=== PATIENT | male | born 1975 | race Caucasian/White ===

== ENCOUNTER 2022-08-09 07:53 | Day surgery (SDC) | payer OTHER ==
[2022-08-08 08:17] VITALS: BMI 33.7
[2022-08-09 08:36] VITALS: RESP 18; TEMP 97.9
[2022-08-09] MEDS: LACTATED RINGERS 1,000 ML IV SCH ×2 (08:36→09:10)
[2022-08-09] MEDS ORDERED: PROPOFOL 10 MG/ML 20 ML VIAL IV ONE (09:12)
[2022-08-09] MEDS ORDERED: LIDOCAINE 2% INJ 20 MG/ML (2 ML VIAL) ONE (09:12)
--- NOTE | 2022-08-09 09:15 | P.GSHP ---
History of Present Illness H&P Date: 08/09/22 Chief Complaint: Screening colonoscopy This a 46-year-old male presents today for screening colonoscopy. She denies any significant GI complaints. Past Medical History Past Medical History: Hyperlipidemia History of Any Multi-Drug Resistant Organisms: None Reported Past Surgical History: Orthopedic Surgery Additional Past Surgical History / Comment(s): COLONOSCOPY. LT KNEE SX. CYSTOSCOPY Past Anesthesia/Blood Transfusion Reactions: No Reported Reaction Smoking Status: Current every day smoker - Past Family History Mother Family Medical History: No Reported History Additional Family Medical History / Comment(s): MATERNAL GRANDFATHER COLON CANCER Medications and Allergies Home Medications Medication Instructions Recorded Confirmed Type Atorvastatin [Lipitor] 20 mg PO HS 08/08/22 08/09/22 History Escitalopram [Lexapro] 10 mg PO HS 08/08/22 08/09/22 History Allergies Allergy/AdvReac Type Severity Reaction Status Date / Time No Known Allergies Allergy Verified 08/09/22 08:22 Surgical - Exam Vital Signs Temp Pulse Resp BP Pulse Ox 97.9 F 73 18 126/83 94 L 08/09/22 08:34 08/09/22 08:34 08/09/22 08:34 08/09/22 08:34 08/09/22 08:34 - General well developed, well nourished, no distress - Eyes PERRL - ENT normal pinna - Neck no masses - Respiratory normal expansion - Cardiovascular Rhythm: regular - Abdomen Abdomen: soft, non tender Assessment and Plan Assessment: We'll perform screening colonoscopy
--- NOTE | 2022-08-09 09:27 | P.OP ---
Date of Procedure: 08/09/22 Preoperative Diagnosis: Screening colonoscopy Postoperative Diagnosis: Normal colon Procedure(s) Performed: Screening colonoscopy Anesthesia: MAC Surgeon: Baljinder Pelayo Pathology: none sent Condition: stable Disposition: PACU Description of Procedure: PROCEDURE: The patient was placed on the endoscopy table in the lateral position. Digital rectal examination was performed which revealed no abnormalities. The prostate was symmetrical without nodules. Flexible colonoscope was then placed in the patient's anus and passed throughout the entire colon. The ileocecal valve was visualized. The cecum, ascending, transverse, descending and sigmoid colon were normal. The rectum was normal as well. There were no masses, polyps or diverticula noted in the entire colon. SUMMARY OF FINDINGS: Normal colonoscopy.
[2022-08-09 09:46] VITALS: BP 114/57; PULSE 58
== END 2022-08-09 10:01 | disposition home or self-care (01) ==
LOC: ORWHC2ENDO 07:53
PROVIDERS: ATTEND Surgery
DX: Z12.11 Encounter for screening for malignant neoplasm of colon (principal); E78.5 Hyperlipidemia, unspecified; F17.200 Nicotine dependence, unspecified, uncomplicated; Z98.890 Other specified postprocedural states; Z80.0 Family history of malignant neoplasm of digestive organs; Z79.899 Other long term (current) drug therapy
CPT/HCPCS: 45378; J2704; J2001

== ENCOUNTER → 2023-05-30 | Outpatient (CLI) | payer OTHER ==
--- NOTE | 2023-05-30 08:11 | CTL ---
EXAMINATION TYPE: CT Low Dose Lung DATE OF EXAM ORDERED: 05/30/2023 COMPARISON: None HISTORY: . Low Dose CT Lung Screening CT DLP: 157.[address] CTDI: 4.0 mGy IV CONTRAST USED: None. SCREENING VISIT: First visit COMPARISON: None. TECHNIQUE: Low dose computed tomography scan was performed through the chest at 1 millimeter thick se ctions and reconstructed images in the coronal plane at [address] DIAGNOSTIC QUALITY: Satisfactory FINDINGS: LUNG NODULES: Within the superior segment of the right lower lobe there is a tubular structure noted which is felt to reflect mucus filled bronchus. Noted adjacent to this are several nodular densities seen with a dominant nodule of 11 mm and some adjacent micronodularity. There is also a band of incre ased density extending to pleural-based nodule of 6.1 mm image 172 sequence 4. The findings are likel y postinflammatory in nature however neoplasm is not excluded. Recommendation is for three-month low- dose CT and/or PET/CT for further evaluation. No additional nodularity identified. LUNGS: COPD: Severity: None Fibrosis: Severity:None Lymph nodes: None Other findings: None RIGHT PLEURAL SPACE: Effusion: None Calcification: None Thickening: None Pneumothorax: None LEFT PLEURAL SPACE: Effusion: None Calcification: None Thickening: None Pneumothorax: None HEART: Heart Size: Mildly enlarged Coronary calcification: Mild Pericardial effusion: None OTHER FINDINGS: Upper abdomen: No significant abnormality Bony thorax: Degenerative changes Supraclavicular region: No significant abnormalityOther: No significant abnormalityI IMPRESSION: 1. Nodularity superior segment right lower lobe as discussed above which could be postinflammatory in nature however neoplasm is not excluded. See below recommendation. FOLLOW UP CT CHEST RECOMMENDATION: Recommendation is for three-month low-dose CT and/or PET/CT for further evaluation CT LUNG RAD: LUNG RAD CATEGORY 4A suspicious
== END | disposition home or self-care (01) ==
LOC: RADCTMAIN 06:04
PROVIDERS: ATTEND Internal Medicine Hematology & Oncology
DX: Z12.2 Encounter for screening for malignant neoplasm of respiratory organs (principal); F17.210 Nicotine dependence, cigarettes, uncomplicated
CPT/HCPCS: 71271

== ENCOUNTER → 2023-07-11 | Outpatient (CLI) | payer OTHER ==
--- NOTE | 2023-07-13 16:46 | PE ---
EXAMINATION TYPE: PET CT fusion skull to thigh DATE OF EXAM: 07/11/2023 CLINICAL INDICATION:Male, 48 years old with history of R91.1 LUNG NODULE; TECHNIQUE: Following the intravenous administration of 10.6 mCi of F-18 FDG, whole body images are performed from the skull base to the midthigh. Images are reviewed on the computer in the coronal, a xial, and sagittal planes. Reconstructed rotating images are created on independent workstation and reviewed on the computer. A non-contrast CT is performed in conjunction with the PET scan. Glucose level 120 mg/dL CT DLP: 1081 mGycm, Automated exposure control for dose reduction was used. COMPARISON: CT 05/30/2023, PET/CT None, FINDINGS: Mediastinal SUV mean is 2.2. Hepatic parenchyma SUV mean is 2.5. SKULL BASE AND NECK: No suspicious radiotracer activity. CHEST, MEDIASTINUM, AND HILAR REGION: * Right lower lobe superior segment nodularity max SUV 2.3. Elongated nodule measuring 15 x 8 mm has streaky extension towards the periphery. * Right pulmonary hilum lymph node max SUV 4.1. ABDOMEN AND PELVIS: No suspicious radiotracer activity. MUSCULOSKELETAL STRUCTURES: No suspicious radiotracer activity.Degenerative uptake within the right s houlder. Max SUV 6.2. OTHER CT: Atherosclerosis of the arterial vasculature is mild. Mild coronary artery atherosclerosis. Probable left hepatic lobe cyst. Scattered colonic diverticula. Fat-containing umbilical hernia. IMPRESSION: Mild FDG activity within the right lower lung superior segment nodularity. Additionally there is some asymmetric uptake within the right pulmonary hilum. Given the nodules small size small size short-te rm follow-up CT chest with IV contrast in 3 months is recommended. Findings could represent infectiou s/inflammatory process with reactive mediastinal lymphadenopathy versus early malignancy.
== END | disposition home or self-care (01) ==
LOC: RADPETMAIN 07:14
PROVIDERS: ATTEND Internal Medicine Hematology & Oncology
DX: R91.8 Other nonspecific abnormal finding of lung field (principal)
CPT/HCPCS: 78815; A9552

== ENCOUNTER → 2023-11-06 | Outpatient (CLI) | payer OTHER ==
--- NOTE | 2023-11-06 13:50 | CT ---
Exam: CT Chest with contrast. Date: 11/06/2023. Comparison: 05/30/2023, PET/CT of 07/11/2023. History: Follow-up for lung nodule. Technique: CT examination of the chest was performed following the intravenous administration of 100 mL of Isovue-370. Coronal and sagittal reformats were performed. CT dose lowering techniques were us ed, to include: automated exposure control, adjustment for patient size, and/or use of iterative andrea nstruction. FINDINGS: Mediastinum and Shanita: There is no axillary, mediastinal or hilar lymphadenopathy. Pleural and Pericardial spaces: There are no pleural or pericardial effusions. Upper Abdomen: The visualized upper abdomen is unremarkable. Cardiovascular: The thoracic aorta is normal in size without evidence of aneurysm or dissection. Pulmonary Artery: There are no central pulmonary arterial abnormalities. The examination was not per formed to evaluate for pulmonary embolism. Lung Parenchyma and Airways: The part solid nodular density in the right lower lobe measures up to ap proximately 1.4 cm in diameter. This appears less dense than seen on the previous examination, howeve r the overall size is very similar. There are no new or enlarging nodules. Bones: No fracture or aggressive osseous lesion. IMPRESSION: 1. Part solid nodule within the right lower lobe is unchanged in size, with the density appears to be slightly less than the previous examination. Follow-up in 6 months is recommended. 2. No acute process otherwise seen.
== END | disposition home or self-care (01) ==
LOC: RADCTMAIN 13:04
PROVIDERS: ATTEND Internal Medicine Hematology & Oncology
DX: R91.1 Solitary pulmonary nodule (principal); D75.1 Secondary polycythemia; F17.210 Nicotine dependence, cigarettes, uncomplicated; Z71.3 Dietary counseling and surveillance; J98.4 Other disorders of lung
CPT/HCPCS: 71260; Q9967

== ENCOUNTER → 2024-05-15 | Outpatient (CLI) | payer OTHER ==
--- NOTE | 2024-05-15 11:56 | CT ---
EXAMINATION TYPE: CT chest w con DATE OF EXAM: 05/15/2024 COMPARISON: 11/06/2023 HISTORY: f/u nodules CT DLP: 800 mGycm Automated exposure control for dose reduction was used. TECHNIQUE: CT scan of the chest is performed with IV Contrast, patient injected with 100 mL of Isovue 300. MIP Images are created on CT scanner and reviewed. 3D reconstructed images are created on an independent workstation and reviewed. FINDINGS: FINDINGS: There is a stable small focal area of tree-in-bud density in the subpleural parenchymal right lower l obe posterolaterally. No new or suspicious lung mass or nodule is seen. There is no pleural effusion, pleural thickening or pneumothorax. The great vessels the chest are normal with no mediastinal, hilar or axillary adenopathy. There is no pulmonary embolus. There is again to the upper abdomen reveals steatosis of the liver. No focal osseous lesions are seen. IMPRESSION: 1. No acute cardiopulmonary disease. 2. Stable small focal area of tree-in-bud density in the right lower lobe. 3. No new pulmonary masses or nodules. [facility], , 05/15/2024 11:54 AM
== END | disposition home or self-care (01) ==
LOC: RADCTMAIN 11:24
PROVIDERS: ATTEND Internal Medicine Hematology & Oncology
DX: R91.1 Solitary pulmonary nodule
CPT/HCPCS: 71260